=== PATIENT | male | born 1960 | race Caucasian/White ===

== ENCOUNTER 2019-01-26 00:23 | Emergency (ER) | payer BC ==
[~2019-01-26] VITALS: Ht 175.3 cm; Wt 72.1 kg
[~2019-01-26 00:23] MED LIST: ALBU90OI6 INH; Prinivil10 MG PO; QVAR REDIHALE10.6 G1 INH
== END 2019-01-26 03:07 | disposition home or self-care (01) ==
LOC: ER 00:23
DX: T18.9XXA Foreign body of alimentary tract, part unspecified, initial encounter (principal); I10 Essential (primary) hypertension; J45.909 Unspecified asthma, uncomplicated; Z79.899 Other long term (current) drug therapy
CPT/HCPCS: 71045; 74018; 99283-25

== ENCOUNTER 2024-05-28 08:06 | Day surgery (SDC) | payer BC ==
[~2024-05-28] VITALS: Ht 175.3 cm; Wt 69.6 kg
[2024-05-28] VITALS (11 sets, daily range): BP systolic 148–177; BP diastolic 75–112
[~2024-05-28 08:06] MED LIST changes: +ALBU90OI INH; +AMLO5 PO; +ASPI81CH PO; +ATOR40TA PO; +LISI20 PO; +LOSARTAN-HCTZ1 EACH PO
[2024-05-28] MEDS ORDERED: VITAMIN D3 (08:54)
[2024-05-28] MEDS ORDERED: NS 100 ML IV ONE (09:24)
[2024-05-28] MEDS ORDERED: CeFAZolin Sodium 2,000 MG VIAL ONE (09:24)
[2024-05-28] MEDS ORDERED: Midazolam HCl 1MG / ML 2ML Vial ONE ×2 (09:24→11:23)
[2024-05-28] MEDS ORDERED: CeFAZolin Sodium 1000 mg Vial ONE (09:24)
[2024-05-28] MEDS ORDERED: NS 1,000 ML IV ONE ×2 (09:25)
[2024-05-28] MEDS ORDERED: Heparin Sodium 1000 Units/ML 10ML MDV ONE (09:27)
[2024-05-28] MEDS ORDERED: Atropine Sulfate 0.1 MG/ML 10ML SYR ONE (10:32)
[2024-05-28] MEDS ORDERED: Acetaminophen 325 MG TABLET ONE (12:17)
--- NOTE | 2024-05-28 12:26 | NUR ---
PATIENT ARRIVED BACK TO RECOVERY ROOM IN RECLINER. PATIENT CONVERSING APPROPRIATELY. L CHEST SITE C/D/I SOFT/NONTENDER, NO EVIDENCE OF BLEEDING. PATIENT AMBULATING TO RESTROOM WITHOUT DIFFICULTY. VSS ON RA
--- NOTE | 2024-05-28 12:54 | NUR ---
PT GIVEN LUNCH TRAY, ICE PACK IN PLACE
--- NOTE | 2024-05-28 13:10 | NUR ---
PT IN XRAY
--- NOTE | 2024-05-28 13:30 | NUR ---
DR QUAN IN TO SEE PT.
--- NOTE | 2024-05-28 13:51 | NUR ---
PT VERBALIZE D/C INSTRUCTIONS. PT GETTING DRESSED.
--- NOTE | 2024-05-28 14:08 | NUR ---
IV D/C CATHETER INTACT. PT WHEELED OUT TO RIDE.
== END 2024-05-28 14:00 | disposition home or self-care (01) ==
LOC: MHTC 08:06
DX: I44.1 Atrioventricular block, second degree (principal); R00.1 Bradycardia, unspecified; G45.9 Transient cerebral ischemic attack, unspecified; G47.8 Other sleep disorders; I12.9 Hypertensive chronic kidney disease with stage 1 through stage 4 chronic kidney disease, or unspecified chronic kidney disease; N18.9 Chronic kidney disease, unspecified; E78.5 Hyperlipidemia, unspecified; Z79.82 Long term (current) use of aspirin; Z79.899 Other long term (current) drug therapy
CPT/HCPCS: 33208; 71046; 99152; 99153; A9270; C1785; C1894; C1898; J0461; J0690; J1644; J2250; J7030; J7040; Q9967

== ENCOUNTER 2024-10-22 07:51 | Emergency (ER) | payer BC ==
[~2024-10-22] VITALS: Ht 175.3 cm; Wt 65.0 kg
[~2024-10-22 07:51] MED LIST changes: +VITAMIN D3
[2024-10-22] MEDS ORDERED: AMLODIPINE BESY10 MG PO (08:18)
[2024-10-22] MEDS ORDERED: HYDCHL25 PO (08:19)
[2024-10-22 08:41] LABS: BASOPHILS ABSOLUTE AUTO 0.06 K/mm3 (0.00-0.23); BASOPHILS PERCENT AUTO 1 % (0-2); EOSINOPHILS ABSOLUTE AUTO 0.24 K/mm3 (0.00-0.68); EOSINOPHILS PERCENT AUTO 5 % (0-6); Hematocrit 42.9 % (37.0-53.0); Hemoglobin 14.6 g/dL (13.5-17.5); IMMATURE GRAN ABSOLUTE AUTO 0.01 K/mm3 (0.00-0.10); IMMATURE GRAN PERCENT AUTO 0 % (0-1); LYMPHOCYTES ABSOLUTE AUTO 0.63 K/mm3 (0.84-5.20); LYMPHOCYTES PERCENT AUTO 12 % (21-46); MONOCYTES ABSOLUTE AUTO 0.43 K/mm3 (0.16-1.47); MONOCYTES PERCENT AUTO 8 % (4-13); Mean Corpuscular HGB 30.1 pg (26.0-34.0); Mean Corpuscular Volume 89 fL (80-100); Mean Platelet Volume 10.5 fL (9.1-12.4); NEUTROPHILS ABSOLUTE AUTO 3.98 K/mm3 (1.96-9.15); NEUTROPHILS PERCENT AUTO 74 % (41-73); Platelet Count 276 K/mm3 (150-400); RDW Coefficient Variation 12.3 % (11.7-14.2); RDW Standard Deviation 39.9 fL (35.1-46.3); Red Blood Cell Count 4.85 M/mm3 (4.30-5.90); White Blood Cell Count 5.35 K/mm3 (4.00-11.30)
[2024-10-22 08:54] LABS: Albumin, Blood 3.8 g/dL (3.4-5.0); Albumin/Globulin Ratio 1.1 (0.8-1.8); Bilirubin, Total 0.3 mg/dL (0.1-1.0); Bun/Creatinine Ratio 27.2 (12.0-20.0); Calcium, Blood 8.2 mg/dL (8.5-10.1); Creatinine, Blood 1.36 mg/dL (0.60-1.20); Globulin, Blood 3.4 g/dL (2.2-4.0); Potassium, Blood 3.8 mmol/L (3.5-5.5); Total Protein, Blood 7.2 g/dL (6.4-8.2)
[2024-10-22] MEDS ORDERED: NS 1,000 ML IV SCH (09:05)
[2024-10-22 10:04] VITALS: BP 143/81
== END 2024-10-22 11:18 | disposition home or self-care (01) ==
LOC: ER 07:51
PROVIDERS: Student in an Organized Health Care Education/Training Program
DX: E86.0 Dehydration (principal); E78.5 Hyperlipidemia, unspecified; I10 Essential (primary) hypertension; J45.909 Unspecified asthma, uncomplicated; Z88.5 Allergy status to narcotic agent; Z88.8 Allergy status to other drugs, medicaments and biological substances; Z79.82 Long term (current) use of aspirin; Z79.899 Other long term (current) drug therapy
CPT/HCPCS: 71046; 80053; 85025; 93005; 93010; 99284-25; J7030